=== PATIENT | female | born 1970 | race African-American/Black ===

== ENCOUNTER 2017-02-18 21:11 | Emergency (ER) ==
[2017-02-18] MEDS ORDERED: DECADRON IM ONE (22:53)
[2017-02-18] MEDS ORDERED: TORADOL IM ONE (22:53)
[2017-02-18] MEDS ORDERED: XYLOCAINE-MPF 1% INJ ONE (22:53)
[2017-02-18] MEDS ORDERED: ROCEPHIN IM ONE (22:53)
--- NOTE | 2017-02-18 22:57 | PROVIDER DOCUMENTATION ---
HPI-EENT General <Osvaldo Morrissey - Last Filed: 02/18/17 22:54> - General Source: patient <Tianna Reid - Last Filed: 02/18/17 23:23> - General Chief Complaint: Sore Throat Stated Complaint: SORE THROAT Time Seen by Provider: 02/18/17 22:31 Allergies/Adverse Reactions: Patient Allergies Allergy/AdvReac Type Severity Reaction Status Date / Time promethazine HCl * AdvReac Mild VOMITING Verified 10/06/16 17:58 [From Phenergan] Home Medications: Home Medication List Medication Instructions Recorded Confirmed Last Taken Type Buspirone HCl 15 mg PO TID 01/22/15 09/10/16 09/10/16 08:00 History Clonazepam [Klonopin] 1 mg PO BID 01/22/15 09/10/16 09/10/16 08:00 History Venlafaxine HCl [Venlafaxine HCl 150 mg PO DAILY 01/22/15 09/10/16 09/10/16 07: 00 History ER] Olanzapine 15 mg PO DAILY 10/17/15 09/10/16 09/10/16 08:00 History Amlodipine Besylate 5 mg PO QAM 01/18/16 09/10/16 09/10/16 08:00 History Atenolol 25 mg PO QAM 01/18/16 09/10/16 09/10/16 08:00 History Hydrochlorothiazide 12.5 mg PO QAM 01/18/16 09/10/16 09/10/16 08:00 History Lovastatin 20 mg PO QHS 01/18/16 09/10/16 09/10/16 07:00 History Metformin HCl 500 mg PO QAM 01/18/16 09/10/16 09/10/16 08:00 History Aripiprazole [Abilify] 15 mg PO HS 09/10/16 09/10/16 09/10/16 08:00 History Ergocalciferol (Vitamin D2) 50,000 unit PO Q7D 09/10/16 09/10/16 09/09/16 07:00 History [Vitamin D] Lidocaine 2% Viscous [Xylocaine 2% 15 ml MT Q3H PRN PRN #1 bottle 09/10/16 Unknown Rx Viscous] Penicillin V Potassium 500 mg PO BID #20 tablet 09/10/16 Unknown Rx Famotidine [Pepcid] 20 mg PO DAILY #20 tablet 10/06/16 Unknown Rx Ketorolac [Toradol] 10 mg PO Q6H PRN PRN #20 tablet 10/06/16 Unknown Rx Penicillin V Potassium 500 mg PO BID #20 tablet 10/06/16 Unknown Rx Amoxicillin/Pot Clavulanate 875 mg PO Q12HR #14 tablet 02/18/17 Unknown Rx [Augmentin] Tramadol [Ultram] 50 mg PO Q8HR #14 tablet 02/18/17 Unknown Rx - History of Present Illness-EENT General Nature of Presenting Problem: 47 year old F presents to the ED with a cc of a sore throat and losing her voice with an onset of this afternoon. PT states that the right side of her throat is more sore than the left. (Tianna Reid) Review of Systems - Adult - REVIEW OF SYSTEMS - ADULT Constitutional: denies: chills, fever Eyes: reports: no symptoms reported Ears, Nose, Mouth & Throat: reports: throat pain. denies: ear pain Cardiovascular: reports: no symptoms reported Respiratory: denies: cough, shortness of breath Gastrointestinal: reports: no symptoms reported Genitourinary: reports: no symptoms reported Musculoskeletal: reports: no symptoms reported Integumentary: reports: no symptoms reported Neurological: reports: no symptoms reported Psychiatric: reports: no symptoms reported Endocrine: reports: no symptoms reported Hematologic/Lymphatic: reports: no symptoms reported Allergic/Immunologic: reports: no symptoms reported All Other Systems: Reviewed and Negative <Tianna Reid - Last Filed: 02/18/17 23:23> Past History - Adult - PAST MEDICAL HISTORY-ADULT Major Childhood Illnesses: reports: denies history Cardiovascular: reports: denies history Respiratory: reports: asthma Gastrointestinal: reports: denies history Obstetrical/Gynecological: reports: denies history Genitourinary: reports: denies history Musculoskeletal: reports: denies history Neurological: reports: denies history Psychiatric: reports: anxiety, bipolar, psychiatric problems, schizophrenia Endocrine/Immune: reports: denies history Other Conditions: reports: denies history - PRIOR SURGERIES/PROCEDURES Surgical/Procedure History: reports: cholecystectomy, other (tubal ligation) - IMMUNIZATION STATUS Childhood Immunizations: See Nurse Assessment Flu Vaccine: See Nurse Assessment - FAMILY HISTORY Family History: reviewed, not pertinent <Osvaldo Morrissey - Last Filed: 02/18/17 22:54> - PAST MEDICAL HISTORY-ADULT Review of Records: reports: Nursing Assessment Review, Medications Reviewed Major Childhood Illnesses: reports: denies history Cardiovascular: reports: HTN Musculoskeletal: reports: osteoporosis Psychiatric: reports: anxiety, bipolar, depression, schizophrenia Endocrine/Immune: reports: Diabetes - PRIOR SURGERIES/PROCEDURES Surgical/Procedure History: reports: BTL - IMMUNIZATION STATUS Childhood Immunizations: See Nurse Assessment Flu Vaccine: See Nurse Assessment - SOCIAL HISTORY Smoking: non-smoker Substance Use: none/never Alcohol Use Frequency: never <Tianna Reid - Last Filed: 02/18/17 23:23> Physical Exam- EENT - Physical Exam EENT Initial Vital Signs Reviewed: Yes General Appearance: appears well, alert, no apparent distress Ear Exam: bilateral ear: auricle normal, canal normal, TM normal Throat Exam: tonsillar swelling (bilaterally) Neck: lymphadenopathy Respiratory: chest non-tender, lungs clear, normal breath sounds Cardiovascular: normal peripheral pulses, regular rate, rhythm, no edema Integumentary: normal color, normal turgor, warm/dry Psych/Mental Status: normal mood/affect, normal thought content, normal thought process, oriented x 3 <FranklinTianna - Last Filed: 02/18/17 23:23> Departure - Departure Time of Disposition Order: 22:55 Certified Medical Emergency: Emergent <Osvaldo Morrissey - Last Filed: 02/18/17 22:54> <FranklinTianna - Last Filed: 02/18/17 23:23> - Departure DIAGNOSIS: Pharyngitis Qualifiers: Pharyngitis/tonsillitis etiology: unspecified etiology Qualified Code(s): J02.9 - Acute pharyngitis, unspecified Disposition: HOME 01 Condition: Stable Additional Instructions: ED Follow Up Instructions: You have been treated by a care provider in the Emergency Department. These instructions are being provided to you so you can have an understanding of how to care for yourself upon discharge. Upon discharge from the Emergency Department, you are responsible for making arrangements for follow-up care by a physician of your choice. Take all prescribed medications as directed. Return to the Emergency Department immediately for any new or worsening symptoms. You may call the Physician Referral phone number at [phone] to obtain a list of Physicians who are taking new patients. Prescriptions: Amoxicillin/Pot Clavulanate [Augmentin] 875 mg PO Q12HR #14 tablet Tramadol [Ultram] 50 mg PO Q8HR #14 tablet Referrals: Krupa Webb CRNP [Primary Care Provider] - Forms: Return to School/Parent Work Instructions: Pharyngitis Attestation - Physician/ YOLY Attestation Patient care was provided by Advanced Practice Provider:: Yes Advanced Practice Provider:: Osvaldo Morrissey Advanced Practice Provider documentation review:: The Mid-level provider documentation, treatment plan and medical decision making was reviewed by the physician who agrees with all treatment and medical decision making by the MLP. <Osvaldo Morrissey - Last Filed: 02/18/17 22:54> Physician Attestation - Physician Attestation I, the provider, attest to the following statement:: Osvaldo Morrissey Physician documentation Attestation:: This documentation recorded by the scribe accurately reflects the service I personally performed and the decisions made by me. <Osvaldo Morrissey - Last Filed: 02/18/17 22:54>
[2017-02-19 00:09] VITALS: BP 138/69
== END 2017-02-19 00:13 | disposition home or self-care (01) ==
LOC: ED 21:11
DX: J02.9 Acute pharyngitis, unspecified (principal); I10 Essential (primary) hypertension; M81.0 Age-related osteoporosis without current pathological fracture; E11.9 Type 2 diabetes mellitus without complications; F41.9 Anxiety disorder, unspecified; F32.9 Major depressive disorder, single episode, unspecified; Z79.899 Other long term (current) drug therapy
CPT/HCPCS: 87081; 87430; J0696; J1885